=== PATIENT | female | born 1965 | race Caucasian/White ===

== ENCOUNTER 2017-03-23 10:25 | Inpatient (IN) | payer BC ==
[~2017-03-23] VITALS: Ht 152.4 cm; Wt 43.3 kg
[2017-03-23] VITALS (9 sets, daily range): BP systolic 103–121; BP diastolic 69–79
[~2017-03-23 10:25] MED LIST: ALBU8.5H8 INH; CARI250T PO; CLON1TAB3 PO; HYDR-2758 PO; TAMO10TA PO; TIOT18CA IH
[2017-03-23] MEDS ORDERED: IV RINGERS SOLUTION,LACTATED 1,000 ML IV SCH (11:15)
[2017-03-23 11:18] LABS: BASO # 0.1 x10^3/uL (0.0-0.2); BASO % 1 % (0-3); EOS % 0 % (0-3); HEMATOCRIT 34.3 % (36.0-47.0); HEMOGLOBIN 11.8 g/dL (12.0-15.5); LYMPH # 0.8 x10^3/uL (1.0-4.8); LYMPH % 14 % (24-48); MEAN CORPUSCULAR HEMOGLOBIN 32 pg (25-35); MEAN CORPUSCULAR HGB CONC 34 g/dL (31-37); MEAN CORPUSCULAR VOLUME 92 fL (79-100); MONO # 0.4 x10^3/uL (0.0-1.1); MONO % 8 % (0-9); NEUT # 4.4 x10^3uL (1.8-7.7); NEUT % 77 % (31-73); PLATELET COUNT 219 x10^3/uL (140-400); RED BLOOD COUNT 3.73 x10^6/uL (3.50-5.40); RED CELL DISTRIBUTION WIDTH 13.9 % (11.5-14.5); WHITE BLOOD COUNT 5.7 x10^3/uL (4.0-11.0)
[2017-03-23 11:29] LABS: PREG TEST PT QUAL NEGATIVE (NEG)
[2017-03-23 11:37] LABS: ACETAMIN < 2 mcg/mL (10-30); CALCIUM 8.3 mg/dL (8.5-10.1); CREATININE 0.8 mg/dL (0.6-1.0); DIRECT BILIRUBIN 0.1 mg/dL (0.0-0.2); ETHANOL < 10 mg/dL (0-10); GFR 75.6; MAGNESIUM 2.3 mg/dL (1.8-2.4); POTASSIUM 3.6 mmol/L (3.5-5.1); SALIC 1.9 mg/dL (2.8-20.0); TOTAL BILIRUBIN 0.3 mg/dL (0.2-1.0); TOTAL PROTEIN 5.8 g/dL (6.4-8.2)
[2017-03-23 11:53] LABS: BARBITURATES NEG (NEG); BENZODIAZEPINES POS (NEG); CANNABINOIDS NEG (NEG); COCAINE NEG (NEG); METHADONE NEG (NEG); OPIATES NEG (NEG); PHENCYCLIDINE NEG (NEG)
[2017-03-23 11:54] LABS: AMPHETAMINE/METHAMPHETAMINE POS (NEG)
[2017-03-23 12:03] LABS: BACTERIA,URINE 0 /HPF (0-FEW); BILIRUBIN,URINE NEG (NEG); CLARITY,URINE CLEAR; COLOR,URINE YELLOW; GLUCOSE,URINE NEG (NEG); NITRITE,URINE NEG (NEG); RBC,URINE 0 /HPF (0-2); SQUAMOUS EPITHELIAL CELL,UR OCC /LPF; UROBILINOGEN,URINE 1 mg/dL (0.2 mg/dL)
[2017-03-23] MEDS ORDERED: IPRATRPIUM/ALBUTEROL 0.5/2.5MG 3 ML NEBU. ONE (12:06)
[2017-03-23] MEDS: IV NORMAL SALINE 1,000ML 1,000 ML IV SCH ×3 (12:30→20:17)
[2017-03-23] MEDS: IPRATRPIUM/ALBUTEROL 0.5/2.5MG 3 ML NEBU. NEB SCH ×3 (12:45→20:00)
[2017-03-23] MEDS ORDERED: ONDANSETRON PF 4 MG/2 ML VIAL. IV PRN (12:45)
--- NOTE | 2017-03-23 12:54 | PHYS DOC ---
General Chief Complaint: ALTERED MENTAL STATUS Stated Complaint: DRUGS Time Seen by MD: 11:05 Source: patient, family Exam Limitations: intoxication Problems: History of Present Illness Initial Comments Patient is a 51-year-old female brought to the ED by her [id number]-dv-jky with a report of possible overmedication. Drbudol-nr-igv states that the patient is being evicted and had advised him that she hadn't slept for 3 days. The patient's daughter called him and said her mom wanted to get clean and so he brought her in for evaluation. Patient has a long history of methamphetamine and "pill" abuse. On arrival the patient lethargic and arousable when having IV placed she did advise the RN that she took meth this morning and didn't like the way it felt so then she took an unknown quantity of Xanax. She also advised the RN that she wanted to end her life she did not however have a plan. On my evaluation the patient is arousable but uncooperative with answering questions. She shakes her head no when asked if she was having pain, chest pain, or trouble breathing. ED vitals: 97.8, 93, 14, 96/62, 98% on room air Timing/Duration: unsure (this morning) Severity: moderate Modifying Factors: worse with medication Associated Symptoms: other Allergies: Coded Allergies: No Known Drug Allergies (Unverified , 08/14/15) Past Medical History Medical History: other (breast cancer, COPD, chronic pain, polysubstance abuse) Surgical History: other (tubal ligation, bilateral mastectomy) Social History Smoker: cigarettes Alcohol: occasionally Drugs: marijuana, other (methamphetamine, prescription medications) Review of Systems All Other Systems: Reviewed and Negative (per history of present illness, accurate review of systems is unobtainable.) Physical Exam General Appearance: no apparent distress (thin, sedated/lethargic) Eyes: bilateral eye PERRL, bilateral eye EOMI Ear, Nose, Throat: hearing grossly normal, normal ENT inspection, normal pharynx Neck: non-tender, supple Respiratory: normal breath sounds, no respiratory distress Cardiovascular: normal peripheral pulses, regular rate, rhythm Gastrointestinal: normal bowel sounds, non tender, soft Back: no CVA tenderness, no vertebral tenderness Extremities: normal range of motion, non-tender, no pedal edema Neurologic/Psychiatric: cutter head sharpener II-XII nml as tested, no motor/sensory deficits ( sedated lethargic, positive suicidal ideation) Orders, Labs, Meds EKG: Normal sinus rhythm 86 bpm no STEMI. Interpreted by Dr. Hernández. Pertinent labs: BUNs 25, creatinine 0.8, AST 44, creatine kinase 827, urine drug screen positive for benzodiazepines and methamphetamine Patient has remained stable throughout the ED course, she has been protecting her airway and is starting to wake up. Current blood pressure 117/77. 1246: I discussed the patient with Dr. Harden who accepts her for inpatient one-to -one ICU admission. We'll administer IV fluids and monitor creatine kinase, await for her mental status to clear so she can be evaluated by Dr. Holloway for suicidal ideation. Impressions: Benzodiazepine overdose Methamphetamine addiction Suicidal ideation Elevated CK potentially trending toward rhabdomyolysis Hypovolemia Departure Time of Disposition: 12:53 Disposition: 09 ADMITTED INPATIENT Condition: GENIED WILLIAN HERNÁNDEZ DO Mar 23, 2017 12:54
--- NOTE | 2017-03-23 13:56 | EKG ---
[address] [address] Test Date: 2017-03-23 Test Time: 11:20:21 Pat Name: EBONY KING Department: Room: [facility] [place] 1 Gender: F Endoscopy Nurse: MYRIAM : 1965 Requested By: WILLIAN RIVAS Order Number: [id number] Reading MD: Naman Lewis MD Measurements Intervals [place] Rate: 86 P: 74 DE: 132 QRS: 81 QRSD: 86 T: 66 QT: 370 QTc: 446 Interpretive Statements SINUS RHYTHM Electronically Signed On 03-26-2017 10:52:57 [employer] OPERATOR by Naman Lewis MD
[2017-03-23] MEDS ORDERED: IV NORMAL SALINE 1,000ML 1,000 ML IV ONE (14:00)
--- NOTE | 2017-03-23 19:01 | PDOC ---
Exam Note: Guillermo Note: Please also refer to the separate dictated note~for this date of service dictated separately.~Patient seen individually. Discussed the patient with Nursing staff reviewed the chart.~Reviewed interim history and current functioning. Reviewed vital signs,~Labs/ Radiology~and current medications noted below. Continue current treatment with the changes noted in the dictated addendum note Assessment: Vital Signs: Vital Signs Date Time Temp Pulse Resp B/P (MAP) Pulse Ox O2 Delivery O2 Flow Rate FiO2 03/23/17 16:32 Room Air 03/23/17 16:29 81 22 118/79 (92) 93 03/23/17 14:15 98.0 I&O Intake and Output 03/24/17 07:00 Intake Total 2668 ml Balance 2668 ml Intake Oral 360 ml IV Total 2308 ml # Voids 1 Labs: Laboratory Tests Test 03/23/17 11:06 03/23/17 11:30 03/23/17 17:36 White Blood Count 5.7 x10^3/uL (4.0-11.0) Red Blood Count 3.73 x10^6/uL (3.50-5.40) Hemoglobin 11.8 g/dL (12.0-15.5) L Hematocrit 34.3 % (36.0-47.0) L Mean Corpuscular Volume 92 fL (79-100) Mean Corpuscular Hemoglobin 32 pg (25-35) Mean Corpuscular Hemoglobin Concent 34 g/dL (31-37) Red Cell Distribution Width 13.9 % (11.5-14.5) Platelet Count 219 x10^3/uL (140-400) Neutrophils (%) (Auto) 77 % (31-73) H Lymphocytes (%) (Auto) 14 % (24-48) L Monocytes (%) (Auto) 8 % (0-9) Eosinophils (%) (Auto) 0 % (0-3) Basophils (%) (Auto) 1 % (0-3) Neutrophils # (Auto) 4.4 x10^3uL (1.8-7.7) Lymphocytes # (Auto) 0.8 x10^3/uL (1.0-4.8) L Monocytes # (Auto) 0.4 x10^3/uL (0.0-1.1) Eosinophils # (Auto) 0.0 x10^3/uL (0.0-0.7) Basophils # (Auto) 0.1 x10^3/uL (0.0-0.2) Sodium Level 140 mmol/L (136-145) Potassium Level 3.6 mmol/L (3.5-5.1) Chloride Level 107 mmol/L (98-107) Carbon Dioxide Level 26 mmol/L (21-32) Anion Gap 7 (6-14) Blood Urea Nitrogen 25 mg/dL (7-20) H Creatinine 0.8 mg/dL (0.6-1.0) Estimated GFR (Cockcroft-Gault) 75.6 Glucose Level 117 mg/dL (70-99) H Calcium Level 8.3 mg/dL (8.5-10.1) L Magnesium Level 2.3 mg/dL (1.8-2.4) Total Bilirubin 0.3 mg/dL (0.2-1.0) Direct Bilirubin 0.1 mg/dL (0.0-0.2) Aspartate Amino Transferase (AST) 44 U/L (15-37) H Alanine Aminotransferase (ALT) 36 U/L (14-59) Alkaline Phosphatase 46 U/L (46-116) Creatine Kinase 827 U/L (26-192) H Troponin I Quantitative < 0.017 ng/mL (0-0.055) 0.022 ng/mL (0-0.055) Total Protein 5.8 g/dL (6.4-8.2) L Albumin 3.0 g/dL (3.4-5.0) L Serum Test, Qualitative Negative (NEG) Salicylates Level 1.9 mg/dL (2.8-20.0) L Salicylate Last Dose Date Unk Salicylate Last Dose Time Unk Acetaminophen Level < 2 mcg/mL (10-30) L Acetaminophen Last Dose Date Unk Acetaminophen Last Dose Time Unk Ethyl Alcohol Level < 10 mg/dL (0-10) Urine Collection Type U cath Urine Color Yellow Urine Clarity Clear Urine pH 6.0 Urine Specific [place] 1.025 Urine Protein Neg (NEG-TRACE) Urine Glucose (UA) Neg mg/dL (NEG) Urine Ketones (Stick) Neg mg/dL (NEG) Urine Blood Neg (NEG) Urine Nitrite Neg (NEG) Urine Bilirubin Neg (NEG) Urine Urobilinogen Dipstick 1 mg/dL (0.2 mg/dL) Urine Leukocyte Esterase Neg (NEG) Urine RBC 0 /HPF (0-2) Urine WBC 1-4 /HPF (0-4) Urine Squamous Epithelial Cells Occ /LPF Urine Bacteria 0 /HPF (0-FEW) Urine Mucus Slight /LPF Urine Opiates Screen Neg (NEG) Urine Methadone Screen Neg (NEG) Urine Barbiturates Neg (NEG) Urine Phencyclidine Screen Neg (NEG) Urine Amphetamine/Methamphetamine Pos (NEG) Urine Benzodiazepines Screen Pos (NEG) Urine Cocaine Screen Neg (NEG) Urine Cannabinoids Screen Neg (NEG) Urine Ethyl Alcohol Neg (NEG) Current Medications: Meds: Current Medications Lactated Ringer's 1,000 ml @ 1,000 mls/hr Q1H IV Last administered on 11:15; Start 03/23/17 at 11:15; Stop 03/23/17 at 11:25; Status DC Albuterol/ Ipratropium (Duoneb) 3 ml STK-MED ONCE .ROUTE ; Start 03/23/17 at 12 :06; Stop 03/23/17 at 12:07; Status DC Ondansetron HCl (Zofran) 4 mg PRN Q4HRS PRN IV NAUSEA/VOMITING; Start at 12:45; Stop 03/24/17 at 12:44 Sodium Chloride 1,000 ml @ 125 mls/hr Q8H IV Last administered on 03/23/17 13:45; Start 03/23/17 at 12:36; Stop 03/24/17 at 12:35 Albuterol/ Ipratropium (Duoneb) 3 ml RTQID NEB ; Start 03/23/17 at 12:45; Stop 03/24/17 at 12:44 Sodium Chloride 1,000 ml @ 1,000 mls/hr 1X ONCE IV Last administered on 03/23 12:15; Start 03/23/17 at 14:00; Stop 03/23/17 at 14:59; Status DC Famotidine (Pepcid) 20 mg BID IVP ; Start 03/23/17 at 21:00 Influenza Virus Vaccine Quadrival (Fluarix Quad [id number] Syringe) 0.5 ml ONCE ONCE VAX IM ; Start 03/24/17 at 09:00; Stop 03/24/17 at 09:01 Pneumococcal Polyvalent Vaccine (Pneumovax 23) 0.5 ml ONCE ONCE VAX IM ; Start 03/24/17 at 09:00; Stop 03/24/17 at 09:01 Nicotine (Nicoderm Cq 21mg) 1 patch DAILY TD ; Start 03/23/17 at 18:15 Active Scripts Active Reported No Known Medications Prior To Admisstion (Info) Each 1 Each MC I have reviewed the current psychotropics carefully including drug interactions. Risk benefit ratio favors no change other than as noted in my dictated progress note. Diagnosis: Problems: (1) Anxiety disorder (2) Major depressive disorder, recurrent episode (3) Methamphetamine abuse (4) Cannabis abuse (5) Suicidal thoughts RAUL YODER MD Mar 23, 2017 19:01
[2017-03-23] MEDS: NICOTINE 21MG PATCH. TD SCH (20:17)
[2017-03-23] MEDS: FAMOTIDINE 20 MG/2 ML VIAL IVP SCH (20:17)
--- NOTE | 2017-03-23 20:54 | HP ---
ADMIT DATE: 03/23/2017 HISTORY OF PRESENT ILLNESS: The patient is a 51-year-old female patient who was brought to the Emergency Room with her [id number]-[id number] with a report of possible overmedication. Icytgoz-tj-fuq states that patient is being evicted and has advised him that she had not slept for 3 days and the patient's daughter called him and said her mom wanted to get clean, so he brought her in for evaluation. The patient has a long history of methamphetamine and bill abuse. By the time she arrived, she apparently was lethargic, but arousable. When the nursing staff attempting to place an IV line, she advised the nursing staff that she took meth this morning, I did not like the way it felt, so that then she took an unknown quantity of Xanax. She also informed the nursing staff that she wanted to end her life; however, she does not have plan for that. She was apparently uncooperative in answering questions. She was evaluated in the Emergency Room and her toxic screen was positive for amphetamine, methamphetamine as well as benzodiazepine and was admitted to the ICU for suicidal ideation with one-on-one observation. When I questioned her in the ICU, she was again very sleepy but arousable, she is so lethargic and sleepy, but she opens her eyes and drifts back to sleep. She was not willing to give answers as to where she gets or who gives her the amphetamine or how she got the Xanax and eventually said that she buy it from the street and she took 3 full bottles of Xanax, which if my assessment is right that she took about 6 mg of Xanax. PAST MEDICAL HISTORY: Significant for breast cancer, COPD, remote history of seizures, generalized osteoarthritis, and scoliosis. PAST SURGICAL HISTORY: Significant for bilateral mastectomy and surgical removal of infected right breast implant. ALLERGIES: She has no known drug allergies. MEDICATIONS: She is currently on albuterol sulfate 2 puffs as needed every 4 hours for shortness of breath. She is on Soma 250 mg at bedtime, clonazepam 1 mg as needed for anxiety, she is on hydrocodone/APAP 5/325 one to two tablets every 6 hours, tamoxifen citrate 10 mg daily and Spiriva HandiHaler 1 inhalation once a day. FAMILY HISTORY: Unobtainable. The patient was extremely lethargic and was uncooperative. SOCIAL HISTORY: She is apparently from her for the last 2 weeks as he moved out. Apparently according to her , her abusive methamphetamine has escalated and has increased dramatically and over the last 2 weeks, he decided that he can no longer live with her and actually moved out. REVIEW OF SYSTEMS: As per accurate review of systems is difficult to obtain because the patient is extremely sedated. PHYSICAL EXAMINATION: GENERAL: When I examined her, she was pale, extremely cachectic, but no jaundice, cyanosis, or thyromegaly. No jugular venous distension. No lower limb edema. VITAL SIGNS: Her heart rate was 93, blood pressure was 103/70, temperature was 97.8, respiratory rate was 14 and oxygen saturation was 97% on room air. HEAD: Showed normocephalic, atraumatic. NECK: Supple. HEART: Showed normal first and second heart sounds with no gallop, rub or murmur. CHEST: Clear to auscultation. No crepitation or rhonchi. She has a breast implant in the left side only. ABDOMEN: Scaphoid, soft, nontender. NEUROLOGIC: She was extremely lethargic, but arousable. All her cranial nerves intact. EXTREMITIES: She moves extremities without difficulty. LABORATORY DATA: On admission showed that her white cell count was 5700, hemoglobin 11.8, hematocrit 34.3, MCV 92, and platelet count of 219,000. Her chemistry showed a serum sodium of 140, potassium 3.6, chloride 107, bicarbonate 26, anion gap of 7, BUN 25, creatinine was 0.8, estimated GFR was 75 mL per minute. Her glucose 117. Calcium was 8.3, magnesium 2.3. Total bilirubin, AST, ALT, alkaline phosphatase were normal. Her CK was 827. Total protein was 5.8, albumin 3. Serum was negative. Urinalysis was unremarkable. Toxic screen was positive for amphetamine, methamphetamine as well as benzodiazepine. ASSESSMENT: In summary, this is a 51-year-old female patient who has been abusing methamphetamine and her abuse has been escalating according to her after she was diagnosed with breast cancer and has worsened recently and that he actually decided to move out. Apparently, her daughter was supposed to take her today to detoxification center and somehow the patient was found by her [id number]-ppn lethargic and unresponsive. The patient herself was unable to tell us exactly who gave her the amphetamine, methamphetamine, and she stated that she buys Xanax on the street. The patient was admitted to the ICU for benzodiazepine overdose, methamphetamine addiction, suicidal ideation and also mild rhabdomyolysis as well as hypovolemia. PLAN: To continue with IV fluid in the form of normal saline. She obviously needs one-on-one sitter. We will consult Dr. Holloway for evaluation and treatment and eventually we will have to get the [facility] for inpatient treatment if that deemed by the psychiatrist to be necessary. ISADORA FAROOQ MD DR: JACK/za JOB#: [id number] / [id number]
[2017-03-24] VITALS (11 sets, daily range): BP systolic 103–137; BP diastolic 71–93
[2017-03-24] MEDS: IV NORMAL SALINE 1,000ML 1,000 ML IV SCH ×2 (03:56→10:34)
[2017-03-24] MEDS: IPRATRPIUM/ALBUTEROL 0.5/2.5MG 3 ML NEBU. NEB SCH ×2 (08:00→12:00)
[2017-03-24] MEDS ORDERED: PNEUMOC CONJ VACC 23-VALENT 0.5 ML VIAL. VAX IM ONE (09:00)
[2017-03-24] MEDS ORDERED: FLU VACC QS2017-18 (36MOS+)/PF 0.5 ML SYRINGE. VAX IM ONE (09:00)
[2017-03-24] MEDS: FAMOTIDINE 20 MG/2 ML VIAL IVP SCH ×2 (09:00→21:00)
[2017-03-24] MEDS: NICOTINE 21MG PATCH. TD SCH ×2 (09:24→22:21)
[2017-03-24 09:37] LABS: BASO # 0.1 x10^3/uL (0.0-0.2); BASO % 1 % (0-3); EOS % 1 % (0-3); HEMATOCRIT 37.4 % (36.0-47.0); HEMOGLOBIN 12.7 g/dL (12.0-15.5); LYMPH # 0.8 x10^3/uL (1.0-4.8); LYMPH % 18 % (24-48); MEAN CORPUSCULAR HEMOGLOBIN 32 pg (25-35); MEAN CORPUSCULAR HGB CONC 34 g/dL (31-37); MEAN CORPUSCULAR VOLUME 92 fL (79-100); MONO # 0.4 x10^3/uL (0.0-1.1); MONO % 8 % (0-9); NEUT # 3.5 x10^3uL (1.8-7.7); NEUT % 73 % (31-73); PLATELET COUNT 226 x10^3/uL (140-400); RED BLOOD COUNT 4.05 x10^6/uL (3.50-5.40); RED CELL DISTRIBUTION WIDTH 13.9 % (11.5-14.5); WHITE BLOOD COUNT 4.8 x10^3/uL (4.0-11.0)
[2017-03-24 09:50] LABS: ALBUMIN 2.7 g/dL (3.4-5.0); CREATININE 0.7 mg/dL (0.6-1.0); GFR 88.2; POTASSIUM 3.8 mmol/L (3.5-5.1); TOTAL BILIRUBIN 0.1 mg/dL (0.2-1.0); TOTAL PROTEIN 5.5 g/dL (6.4-8.2)
--- NOTE | 2017-03-24 19:49 | PDOC ---
Exam Note: Guillermo Note: Please also refer to the separate dictated note~for this date of service dictated separately.~Patient seen individually. Discussed the patient with Nursing staff reviewed the chart.~Reviewed interim history and current functioning. Reviewed vital signs,~Labs/ Radiology~and current medications noted below. Continue current treatment with the changes noted in the dictated addendum note Assessment: Vital Signs: Vital Signs Date Time Temp Pulse Resp B/P (MAP) Pulse Ox O2 Delivery O2 Flow Rate FiO2 03/24/17 13:34 91 20 137/78 (97) Room Air 03/24/17 12:33 96 03/24/17 07:00 97.1 I&O Intake and Output 03/25/17 07:00 Intake Total 840 ml Balance 840 ml Intake Oral 840 ml # Voids 3 # Bowel Movements 1 Labs: Laboratory Tests Test 03/23/17 23:35 03/24/17 09:15 Troponin I Quantitative < 0.017 ng/mL (0-0.055) White Blood Count 4.8 x10^3/uL (4.0-11.0) Red Blood Count 4.05 x10^6/uL (3.50-5.40) Hemoglobin 12.7 g/dL (12.0-15.5) Hematocrit 37.4 % (36.0-47.0) Mean Corpuscular Volume 92 fL (79-100) Mean Corpuscular Hemoglobin 32 pg (25-35) Mean Corpuscular Hemoglobin Concent 34 g/dL (31-37) Red Cell Distribution Width 13.9 % (11.5-14.5) Platelet Count 226 x10^3/uL (140-400) Neutrophils (%) (Auto) 73 % (31-73) Lymphocytes (%) (Auto) 18 % (24-48) L Monocytes (%) (Auto) 8 % (0-9) Eosinophils (%) (Auto) 1 % (0-3) Basophils (%) (Auto) 1 % (0-3) Neutrophils # (Auto) 3.5 x10^3uL (1.8-7.7) Lymphocytes # (Auto) 0.8 x10^3/uL (1.0-4.8) L Monocytes # (Auto) 0.4 x10^3/uL (0.0-1.1) Eosinophils # (Auto) 0.0 x10^3/uL (0.0-0.7) Basophils # (Auto) 0.1 x10^3/uL (0.0-0.2) Sodium Level 142 mmol/L (136-145) Potassium Level 3.8 mmol/L (3.5-5.1) Chloride Level 109 mmol/L (98-107) H Carbon Dioxide Level 26 mmol/L (21-32) Anion Gap 7 (6-14) Blood Urea Nitrogen 12 mg/dL (7-20) # Creatinine 0.7 mg/dL (0.6-1.0) Estimated GFR (Cockcroft-Gault) 88.2 BUN/Creatinine Ratio 17 (6-20) Glucose Level 67 mg/dL (70-99) L Calcium Level 8.0 mg/dL (8.5-10.1) L Total Bilirubin 0.1 mg/dL (0.2-1.0) #L Aspartate Amino Transferase (AST) 30 U/L (15-37) Alanine Aminotransferase (ALT) 29 U/L (14-59) Alkaline Phosphatase 51 U/L (46-116) Creatine Kinase 322 U/L (26-192) H Total Protein 5.5 g/dL (6.4-8.2) L Albumin 2.7 g/dL (3.4-5.0) L Albumin/Globulin Ratio 1.0 (1.0-1.7) Current Medications: Meds: Current Medications Lactated Ringer's 1,000 ml @ 1,000 mls/hr Q1H IV Last administered on 11:15; Start 03/23/17 at 11:15; Stop 03/23/17 at 11:25; Status DC Albuterol/ Ipratropium (Duoneb) 3 ml STK-MED ONCE .ROUTE ; Start 03/23/17 at 12 :06; Stop 03/23/17 at 12:07; Status DC Ondansetron HCl (Zofran) 4 mg PRN Q4HRS PRN IV NAUSEA/VOMITING; Start at 12:45; Stop 03/24/17 at 12:44; Status DC Sodium Chloride 1,000 ml @ 125 mls/hr Q8H IV Last administered on 03/24/17 03:56; Start 03/23/17 at 12:36; Stop 03/24/17 at 12:35; Status DC Albuterol/ Ipratropium (Duoneb) 3 ml RTQID NEB ; Start 03/23/17 at 12:45; Stop 03/24/17 at 12:44; Status DC Sodium Chloride 1,000 ml @ 1,000 mls/hr 1X ONCE IV Last administered on 03/23 12:15; Start 03/23/17 at 14:00; Stop 03/23/17 at 14:59; Status DC Famotidine (Pepcid) 20 mg BID IVP Last administered on 03/23/17 20:17; Start 03/23/17 at 21:00 Influenza Virus Vaccine Quadrival (Fluarix Quad [id number] Syringe) 0.5 ml ONCE ONCE VAX IM Last administered on 03/24/17 09:28; Start 03/24/17 at 09:00; Stop 03/24/17 at 09:01; Status DC Pneumococcal Polyvalent Vaccine (Pneumovax 23) 0.5 ml ONCE ONCE VAX IM Last administered on 03/24/17 09:27; Start 03/24/17 at 09:00; Stop 03/24/17 at 09 :01; Status DC Nicotine (Nicoderm Cq 21mg) 1 patch DAILY TD Last administered on 03/24/17 09 :24; Start 03/23/17 at 18:15 Active Scripts Active Reported No Known Medications Prior To Admisstion (Info) Each 1 Each MC I have reviewed the current psychotropics carefully including drug interactions. Risk benefit ratio favors no change other than as noted in my dictated progress note. Diagnosis: Problems: (1) Suicidal thoughts (2) Anxiety disorder (3) Major depressive disorder, recurrent episode (4) Methamphetamine abuse (5) Cannabis abuse RAUL YODER MD Mar 24, 2017 19:49
--- NOTE | 2017-03-25 06:26 | CONS ---
DATE OF CONSULTATION: 03/23/2017 PSYCHIATRIC CONSULTATION This late entry, date of service 03/23/2017, covers elements not covered in my initial note of 03/23/2017. I met with the patient the evening of 03/23/2017. Discussed with nursing staff and current past records. IDENTIFYING DATA: The patient is a 51-year-old female seen in ICU bed 2, [facility], for a psychiatric consult requested by Dr. Harden on account of the patient's polysubstance abuse including methamphetamines and an overdose of Xanax and then ongoing history of cannabis abuse. CHIEF COMPLAINT: "No, I was never suicidal. I should not have used meth. I took Xanax to calm down. I was not wanting to hurt myself." HISTORY OF PRESENT ILLNESS: Reportedly, the patient had some marital problems and other psychosocial stressors including employment issues. She has been abusing methamphetamines and was brought to the Emergency Room with her ufjvzyf-xo-tde with possible over medication. Reportedly, the patient is being evicted from her home and had not slept for about 3 days. The patient's daughter called him and said her mother wanted to get clean, so he brought her into [facility]. She informed the nursing staff in the ER, she took methamphetamine, did not like the way she felt and then took Xanax to get better from it. She also voiced suicidal ideation to the nursing staff, but since then has denied it and has no plan. Apparently, she took about 6 mg of Xanax. PAST PSYCHIATRIC HISTORY: She has been seen at the [facility], details are unclear and she was not able to remember who she saw and for how long and when. PAST MEDICAL HISTORY: Positive for breast cancer, COPD, remote history of seizure, generalized osteoarthritis, scoliosis. PAST SURGICAL HISTORY: Bilateral mastectomy, surgical removal of infected right breast implant. She has been on Tamoxifen, but is not taking it recently because she has no primary care physician consequent to no insurance and unable to afford the medication. DRUG ALLERGIES: Negative. FAMILY HISTORY: Noncontributory. SOCIAL HISTORY: The patient is from her , but since being in the ICU, the has come to visit her. She is unemployed. MENTAL STATUS EXAMINATION: The patient is seen individually. She is oriented to herself and situation, somewhat irritable, anxious. Denies active suicidal or homicidal ideation. Mood somewhat dysphoric. Affect, mood congruent. Attention span short. Language function intact. Intellect average. Refusing to answer questions about where she got the methamphetamine and Xanax. No active suicidal or homicidal ideation. IMPRESSION: Polysubstance abuse, depressive disorder, unspecified, over medication with Xanax and methamphetamine. PLAN: No active change from a psychiatric standpoint. The patient is on one-on-one status. She denies active suicidal ideation and after adequate period of observation, this could be discontinued. She should [facility] once she is medically stable with consideration for drug rehabilitation or inpatient psychiatric placement or outpatient treatment including day program at the [facility]. We will have to defer this to the [facility] screeners for determination at the time she is medically stable. Dr. Harden, thank you for the opportunity to participate in your patient's care. MAN Cathy YODER MD DR: DIONNE/za JOB#: [id number] / [id number]
--- NOTE | 2017-03-25 11:06 | PN ---
DATE: 03/24/2017 SUBJECTIVE: The patient is a 51-year-old female patient who was admitted with altered mental status. She was apparently unresponsive. She took a total of 6 mg of Xanax; after taking the methamphetamine, she was admitted to the hospital. Her initial investigation showed that her QT interval was normal. Her electrolytes were normal. Her CK was slightly elevated and was started on IV fluid. She was sleeping all night and early this morning by the time I saw her in the afternoon, she was awake, alert. On questioning her, she stated on multiple occasions that she has no intention to harm herself; however, her stated that she has been escalating her methamphetamine abuse to the extent that he actually moved out about 2 weeks ago. PHYSICAL EXAMINATION: GENERAL: When I saw her this afternoon, she was definitely awake, alert, responding appropriately. On examining her, she was slightly pale, but not jaundiced, cyanosis, or thyromegaly. No jugular venous distention. No limb edema. VITAL SIGNS: Her heart rate was 91, blood pressure 137/78, temperature was 97, respiratory rate was 20, and oxygen saturation was 96%. HEAD, EYES, EARS, NOSE AND THROAT: Showed normocephalic, atraumatic. NECK: Supple. HEART: Showed normal first and second heart sounds with no gallop, rub or murmur. CHEST: Clear to auscultation. No crepitation or rhonchi. ABDOMEN: Distended, soft, and nontender. NEUROLOGIC: She was awake, alert, responding appropriately. Cranial nerves intact. She moves extremities without difficulty. She ambulates without assistance or assistive devices. Her intake was 3300, no output was reported. LABORATORY DATA: This morning showed a serum sodium 142, potassium 3.8, chloride 109, bicarbonate 26, anion gap of 7, BUN 12, creatinine 0.7. Her estimated GFR was 88 mL per minute. Her glucose was 67, calcium was 8. Total bilirubin, AST, ALT, alkaline phosphatase were normal. Total protein of 5.5, albumin 2.7. Her CK was only 322 down from 827. Her white cell count was 4,800, hemoglobin 12.7, hematocrit 37, MCV 92, and platelet count 227,000. Her EKG showed that her corrected QT interval is 450 milliseconds. ASSESSMENT: In summary, this is a 51-year-old female patient who was brought yesterday with methamphetamine abuse and overdose of Xanax. The patient is now alert, oriented to time, place, and person. Her Dairy coma focal is 15. PLAN: She is medically stable. We are waiting for the consult to evaluate her to decide whether she needs to have inpatient treatment. ISADORA FAROOQ MD DR: JACK/za JOB#: [id number] / [id number]
[2017-03-25] MEDS ORDERED: NITR100C62 PO (19:11)
== END 2017-03-24 20:25 | disposition home or self-care (01) | DRG 918 ==
LOC: ER 10:25 → ICU 13:04 → 1 SOUTH 03-24 17:13
PROVIDERS: ADMIT Internal Medicine; ATTEND Internal Medicine
DX: T42.4X2A Poisoning by benzodiazepines, intentional self-harm, initial encounter (principal); M62.82 Rhabdomyolysis; F15.20 Other stimulant dependence, uncomplicated; F33.9 Major depressive disorder, recurrent, unspecified; M41.9 Scoliosis, unspecified; E86.1 Hypovolemia; F12.10 Cannabis abuse, uncomplicated; F41.9 Anxiety disorder, unspecified; J44.9 Chronic obstructive pulmonary disease, unspecified; M15.9 Polyosteoarthritis, unspecified; Z63.0 Problems in relationship with spouse or partner; Z85.3 Personal history of malignant neoplasm of breast; Z90.13 Acquired absence of bilateral breasts and nipples; F19.10 Other psychoactive substance abuse, uncomplicated; G89.29 Other chronic pain; Z98.51 Tubal ligation status; F17.210 Nicotine dependence, cigarettes, uncomplicated
CPT/HCPCS: 36415; 51701; 80048; 80053; 80076; 80307; 81001; 82550; 83735; 84484; 84703; 85025; 87641; 90686; 90732; 93005; 94640; 96360; G0480; J7120; S0028; 99285-25; G0479; J7030

== ENCOUNTER 2017-03-25 17:00 | Emergency (ER) | payer SELFPAY ==
[~2017-03-25] VITALS: Ht 152.4 cm; Wt 43.1 kg
[2017-03-25 17:05] VITALS: BP 137/78
[2017-03-25 18:17] LABS: BASO % 1 % (0-3); CALCIUM 8.9 mg/dL (8.5-10.1); CREATININE 0.7 mg/dL (0.6-1.0); EOS % 0 % (0-3); GFR 88.2; HEMATOCRIT 40.3 % (36.0-47.0); HEMOGLOBIN 13.8 g/dL (12.0-15.5); LYMPH # 0.8 x10^3/uL (1.0-4.8); LYMPH % 13 % (24-48); MEAN CORPUSCULAR HEMOGLOBIN 31 pg (25-35); MEAN CORPUSCULAR HGB CONC 34 g/dL (31-37); MEAN CORPUSCULAR VOLUME 91 fL (79-100); MONO # 0.5 x10^3/uL (0.0-1.1); MONO % 7 % (0-9); NEUT # 4.8 x10^3uL (1.8-7.7); NEUT % 78 % (31-73); PLATELET COUNT 263 x10^3/uL (140-400); POTASSIUM 3.4 mmol/L (3.5-5.1); RED BLOOD COUNT 4.41 x10^6/uL (3.50-5.40); WHITE BLOOD COUNT 6.1 x10^3/uL (4.0-11.0)
[2017-03-25 18:30] LABS: BARBITURATES NEG (NEG); BENZODIAZEPINES POS (NEG); CANNABINOIDS NEG (NEG); COCAINE NEG (NEG); METHADONE NEG (NEG); OPIATES NEG (NEG); PHENCYCLIDINE NEG (NEG)
[2017-03-25 18:36] LABS: BACTERIA,URINE FEW /HPF (0-FEW); BILIRUBIN,URINE NEG (NEG); CLARITY,URINE CLOUDY; COLOR,URINE YELLOW; GLUCOSE,URINE NEG (NEG); NITRITE,URINE NEG (NEG); RBC,URINE OCC /HPF (0-2); SQUAMOUS EPITHELIAL CELL,UR OCC /LPF; UROBILINOGEN,URINE 0.2 mg/dL (0.2 mg/dL)
[2017-03-25 18:39] LABS: AMPHETAMINE/METHAMPHETAMINE POS (NEG)
--- NOTE | 2017-03-25 18:49 | PHYS DOC ---
Past History Past Medical History: Cancer, COPD, Other Past Surgical History: Cancer Surgery, Tubal ligation, Other Alcohol Use: Occasionally Drug Use: Methamphetamine, Other Adult General Chief Complaint Chief Complaint: PSYCH EVALUATION HPI HPI Patient is a 51 year old female who presents with complaint of anxiety. The patient states that she has history of chronic Xanax abuse but also states that she recently took methamphetamine. Patient was admitted to the hospital for concern over drug overdose 2 days ago. The patient was medically treated and cleared. Patient also received psychiatric evaluation while in the hospital yesterday and was deemed clear for outpatient services. Patient was discharged home, however the patient comes back today she is having worsening anxiety. Patient states that she feels terrible at this time due to her drug use and she is seeking help with detox. Patient is accompanied by her who helps provide history. The patient denies any other somatic complaints at this time. The patient states that she would go to an inpatient detox center voluntarily at this time. Review of Systems Review of Systems Constitutional: Anxiety, shaky, denies fever or chills[] Eyes: Denies change in visual acuity, redness, or eye pain [] HENT: Denies nasal congestion or sore throat [] Respiratory: Denies cough or shortness of breath [] Cardiovascular: Denies chest pain or edema[] GI: Denies abdominal pain, nausea, vomiting, bloody stools or diarrhea [] : Denies dysuria or hematuria [] Musculoskeletal: Denies back pain or joint pain [] Integument: Denies rash or skin lesions [] Neurologic: Denies headache, focal weakness or sensory changes [] All other systems were reviewed and found to be within normal limits, except as documented in this note. Allergies Allergies Allergies Coded Allergies Type Severity Reaction Last Updated Verified No Known Drug Allergies 08/14/15 No Physical Exam Physical Exam Constitutional: Alert, afebrile, appears anxious. [] HENT: Normocephalic, atraumatic, bilateral external ears normal, oropharynx moist, no oral exudates, nose normal. [] Eyes: PERRLA, EOMI, conjunctiva normal, no discharge. [] Neck: Normal range of motion, no tenderness, supple, no stridor. [] Cardiovascular: Tachycardia, regular rhythm, no murmur [] Lungs & Thorax: Bilateral breath sounds clear to auscultation [] Abdomen: Bowel sounds normal, soft, no tenderness, no masses, no pulsatile masses. [] Skin: Warm, dry, no erythema, no rash. [] Back: No tenderness, no CVA tenderness. [] Extremities: No tenderness, no cyanosis, no clubbing, ROM intact, no edema. [] Neurologic: Alert and oriented X 3, normal motor function, normal sensory function, no focal deficits noted. [] Current Patient Data Vital Signs Vital Signs Date Time Temp Pulse Resp B/P (MAP) Pulse Ox O2 Delivery O2 Flow Rate FiO2 03/25/17 17:05 98.0 107 18 98 Room Air Lab Results Laboratory Tests Test 03/25/17 17:43 White Blood Count 6.1 x10^3/uL (4.0-11.0) Red Blood Count 4.41 x10^6/uL (3.50-5.40) Hemoglobin 13.8 g/dL (12.0-15.5) Hematocrit 40.3 % (36.0-47.0) Mean Corpuscular Volume 91 fL (79-100) Mean Corpuscular Hemoglobin 31 pg (25-35) Mean Corpuscular Hemoglobin Concent 34 g/dL (31-37) Red Cell Distribution Width 14.0 % (11.5-14.5) Platelet Count 263 x10^3/uL (140-400) Neutrophils (%) (Auto) 78 % (31-73) H Lymphocytes (%) (Auto) 13 % (24-48) L Monocytes (%) (Auto) 7 % (0-9) Eosinophils (%) (Auto) 0 % (0-3) Basophils (%) (Auto) 1 % (0-3) Neutrophils # (Auto) 4.8 x10^3uL (1.8-7.7) Lymphocytes # (Auto) 0.8 x10^3/uL (1.0-4.8) L Monocytes # (Auto) 0.5 x10^3/uL (0.0-1.1) Eosinophils # (Auto) 0.0 x10^3/uL (0.0-0.7) Basophils # (Auto) 0.0 x10^3/uL (0.0-0.2) Urine Collection Type Unknown Urine Color Yellow Urine Clarity Cloudy Urine pH 6.5 Urine Specific [place] 1.015 Urine Protein 30 mg/dl (NEG-TRACE) Urine Glucose (UA) Neg mg/dL (NEG) Urine Ketones (Stick) Neg mg/dL (NEG) Urine Blood Small (NEG) Urine Nitrite Neg (NEG) Urine Bilirubin Neg (NEG) Urine Urobilinogen Dipstick 0.2 mg/dL (0.2 mg/dL) Urine Leukocyte Esterase Large (NEG) Urine RBC Occ /HPF (0-2) Urine WBC 11-20 /HPF (0-4) Urine Squamous Epithelial Cells Occ /LPF Urine Bacteria Few /HPF (0-FEW) Urine Mucus Slight /LPF Sodium Level 142 mmol/L (136-145) Potassium Level 3.4 mmol/L (3.5-5.1) L Chloride Level 106 mmol/L (98-107) Carbon Dioxide Level 30 mmol/L (21-32) Anion Gap 6 (6-14) Blood Urea Nitrogen 8 mg/dL (7-20) Creatinine 0.7 mg/dL (0.6-1.0) Estimated GFR (Cockcroft-Gault) 88.2 Glucose Level 98 mg/dL (70-99) Calcium Level 8.9 mg/dL (8.5-10.1) Urine Opiates Screen Neg (NEG) Urine Methadone Screen Neg (NEG) Urine Barbiturates Neg (NEG) Urine Phencyclidine Screen Neg (NEG) Urine Amphetamine/Methamphetamine Pos (NEG) Urine Benzodiazepines Screen Pos (NEG) Urine Cocaine Screen Neg (NEG) Urine Cannabinoids Screen Neg (NEG) Ethyl Alcohol Level < 10 mg/dL (0-10) Urine Ethyl Alcohol Neg (NEG) EKG EKG Rhythm strip interpretation by me: Heart rate 105, sinus tachycardia, no ectopy. [] Radiology/Procedures Radiology/Procedures Not performed[] Course & Med Decision Making Course & Med Decision Making Pertinent Labs and Imaging studies reviewed. (See chart for details) The patient stated that she wanted to be admitted voluntarily for detox from her substance abuse. Patient medically cleared in the emergency department. Patient received psychiatric clearance by Dr. Holloway yesterday while she was admitted. Patient denies suicidal or homicidal ideation at this time. [facility] was contacted and requested information for review. Unfortunately, after receiving all of her information, they called back and declined the patient. The patient initially had paperwork completed in anticipation of acceptance to [facility] detox center. The emergency department nurse told the patient and her that she would not be accepted to [facility] and was offered to have additional centers contacted an attempt to try to establish inpatient detox care this evening. Unfortunately the patient and the patient's declined and stated that they wanted to go home. The patient did not voice suicidal or homicidal ideation. They wanted to leave immediately and I did not have a chance to sit down and speak with them regarding additional options. The patient was accidentally given paperwork that instructed them to go to [facility] upon discharge. Verbally the patient was given instructions to follow up with [facility] tomorrow and advised return to the emergency department for any worsening symptoms. Dragon Disclaimer Dragon Disclaimer This electronic medical record was generated, in whole or in part, using a voice recognition dictation system. Departure Departure: Impression: Primary Impression: Substance abuse Additional Impression: Anxiety disorder Disposition: 65 XFER TO PSYCH HOSP/UNIT Condition: STABLE Referrals: PCP,NO (PCP) Patient Instructions: Substance Abuse-Brief, Urinary Tract Infection Additional Instructions: Follow-up tomorrow at the [facility] for continued outpatient treatment. Return to the emergency department for any worsening symptoms. Scripts Nitrofurantoin Monohyd/M-Cryst (MACROBID 100 MG CAPSULE) 100 Mg Capsule 1 CAP PO BID, #14 CAP Prov: NAS DENTON MD 03/25/17 Problem Qualifiers Additional Impression: Anxiety disorder Anxiety disorder type: generalized anxiety disorder Qualified Codes: F41.1 - Generalized anxiety disorder NAS DENTON MD Mar 25, 2017 18:49
[2017-03-25] MEDS ORDERED: NITR100C62 PO (19:11)
== END 2017-03-25 19:30 | disposition home or self-care (01) ==
LOC: ER 17:00
DX: F41.1 Generalized anxiety disorder (principal); F15.10 Other stimulant abuse, uncomplicated; J44.9 Chronic obstructive pulmonary disease, unspecified
CPT/HCPCS: 36415; 80048; 80307; 81001; 85025; 87086; 99284; G0480; G0479

== ENCOUNTER 2018-01-04 14:51 | Emergency (ER) | payer SELFPAY ==
[~2018-01-04 14:51] MED LIST changes: -CLON1TAB3 PO; +CLON1TAB4 PO; +NITR100C62 PO
[2018-01-04] MEDS ORDERED: MVI, ADULT NO.4 WITH VIT K 10 ML, FOLIC ACID 1 MG, THIAMINE 100 MG in IV NORMAL SALINE ... IV ONE ×4 (15:30)
[2018-01-04 15:35] LABS: BASO % 1 % (0-3); EOS # 0.1 x10^3/uL (0.0-0.7); EOS % 2 % (0-3); HEMATOCRIT 38.5 % (36.0-47.0); HEMOGLOBIN 13.3 g/dL (12.0-15.5); LYMPH # 2.2 x10^3/uL (1.0-4.8); LYMPH % 38 % (24-48); MEAN CORPUSCULAR HEMOGLOBIN 33 pg (25-35); MEAN CORPUSCULAR HGB CONC 35 g/dL (31-37); MEAN CORPUSCULAR VOLUME 95 fL (79-100); MONO # 0.5 x10^3/uL (0.0-1.1); MONO % 8 % (0-9); NEUT % 52 % (31-73); PLATELET COUNT 260 x10^3/uL (140-400); RED BLOOD COUNT 4.07 x10^6/uL (3.50-5.40); WHITE BLOOD COUNT 5.8 x10^3/uL (4.0-11.0)
--- NOTE | 2018-01-04 15:43 | PHYS DOC ---
Past History Past Medical History: Cancer, COPD, Other Past Surgical History: Cancer Surgery, Tubal ligation, Other Alcohol Use: Occasionally Additional Alcohol Information: States been drinking daily approx 1 pint Vodka added beer daily and states added xanax today Drug Use: Methamphetamine, Other Adult General Chief Complaint Chief Complaint: ALTERED MENTAL STATUS HPI HPI 52-year-old female presents via EMS unresponsiveness and abdominal status. Patient was reported to be found on the sidewalk with decreased, agonal breathing and was unresponsive. She was given 1 mg of Narcan which made the patient unresponsive and belligerent. She ripped out her IV in the ambulance. On arrival the patient is calm and able to answer all questions. She does not seem to be happy to be here. She states that she is fine. When I ask her what she remembers she states that she does not a anything until waking up in the ambulance. She denies drug use. She admits to drinking 1 L of vodka or more per day for several days. She denies abdominal pain, nausea, vomiting, shortness breath, chest pain, dysuria, urinary frequency, fever, or chills. Review of Systems Review of Systems Constitutional: Altered mental status[] Eyes: Denies change in visual acuity, redness, or eye pain [] HENT: Denies nasal congestion or sore throat [] Respiratory: Denies cough or shortness of breath [] Cardiovascular: No additional information not addressed in HPI [] GI: Denies abdominal pain, nausea, vomiting, bloody stools or diarrhea [] : Denies dysuria or hematuria [] Musculoskeletal: Denies back pain or joint pain [] Integument: Denies rash or skin lesions [] Neurologic: Denies headache, focal weakness or sensory changes [] Endocrine: Denies polyuria or polydipsia [] All other systems were reviewed and found to be within normal limits, except as documented in this note. Current Medications Current Medications Current Medications Medications (Trade) Dose Ordered Sig/[place] Start Time Stop Time Status Last Admin Dose Admin Multivitamins/ Minerals 10 ml/ Folic Acid 1 mg/ Thiamine HCl 100 mg/Sodium Chloride 1,011.2 ml @ 0 mls/hr 1X ONCE 01/04/18 15:30 01/04/18 15:31 DC Allergies Allergies Allergies Coded Allergies Type Severity Reaction Last Updated Verified No Known Drug Allergies 08/14/15 No Physical Exam Physical Exam Constitutional: Well developed, well nourished, no acute distress, non-toxic appearance. [] HENT: Normocephalic, atraumatic, bilateral external ears normal, oropharynx moist, no oral exudates, nose normal. [] Eyes: PERRLA, EOMI, conjunctiva normal, no discharge. [] Neck: Normal range of motion, no tenderness, supple, no stridor. [] Cardiovascular:Heart rate regular rhythm, no murmur [] Lungs & Thorax: Bilateral breath sounds clear to auscultation [] Abdomen: Bowel sounds normal, soft, no tenderness, no masses, no pulsatile masses. [] Skin: Warm, dry, no erythema, no rash. [] Back: No tenderness, no CVA tenderness. [] Extremities: No tenderness, no cyanosis, no clubbing, ROM intact, no edema. [] Neurologic: Alert and oriented X 3, normal motor function, normal sensory function, no focal deficits noted. [] Psychologic: Affect mildly confrontational. Patient is denying the need for medical workup.[] Current Patient Data Vital Signs Vital Signs Date Time Temp Pulse Resp B/P (MAP) Pulse Ox O2 Delivery O2 Flow Rate FiO2 01/04/18 15:35 96 14 111/64 (80) 91 Room Air 01/04/18 14:51 98.7 Lab Results Laboratory Tests Test 01/04/18 14:55 White Blood Count 5.8 x10^3/uL (4.0-11.0) Red Blood Count 4.07 x10^6/uL (3.50-5.40) Hemoglobin 13.3 g/dL (12.0-15.5) Hematocrit 38.5 % (36.0-47.0) Mean Corpuscular Volume 95 fL (79-100) Mean Corpuscular Hemoglobin 33 pg (25-35) Mean Corpuscular Hemoglobin Concent 35 g/dL (31-37) Red Cell Distribution Width 14.0 % (11.5-14.5) Platelet Count 260 x10^3/uL (140-400) Neutrophils (%) (Auto) 52 % (31-73) Lymphocytes (%) (Auto) 38 % (24-48) Monocytes (%) (Auto) 8 % (0-9) Eosinophils (%) (Auto) 2 % (0-3) Basophils (%) (Auto) 1 % (0-3) Neutrophils # (Auto) 3.0 x10^3uL (1.8-7.7) Lymphocytes # (Auto) 2.2 x10^3/uL (1.0-4.8) Monocytes # (Auto) 0.5 x10^3/uL (0.0-1.1) Eosinophils # (Auto) 0.1 x10^3/uL (0.0-0.7) Basophils # (Auto) 0.0 x10^3/uL (0.0-0.2) EKG EKG [] Radiology/Procedures Radiology/Procedures [] Impressions: EXAM: Head CT without contrast. HISTORY: Unresponsive. TECHNIQUE: Computed tomographic images of the head were obtained without contrast. *One or more of the following individualized dose reduction techniques were utilized for this examination: 1. Automated exposure control. 2. Adjustment of the mA and/or kV according to patient size. 3. Use of iterative reconstruction technique. COMPARISON: None. FINDINGS: There is no acute or subacute extra-axial or intraparenchymal hemorrhage. There is no mass effect or midline shift. There is no hydrocephalus. The thomas-white matter differentiation pattern is intact. The visualized portions of the orbits, paranasal sinuses and mastoid air cells are unremarkable. No suspicious calvarial lesion is seen. IMPRESSION: No acute intracranial findings. Electronically signed by: Suha Martínez MD (01/04/2018 4:00 PM) [facility] [place] EXAM: Chest, single view. HISTORY: Unresponsive. COMPARISON: None. FINDINGS: A frontal view of the chest is obtained. There are mastectomy changes. There is increased opacity overlying the left thorax due to a tissue marbleizer. There are clips overlying the right axilla and upper mid thorax. There is no infiltrate, pleural effusion or pneumothorax. The heart is normal in size. There is articulation between the anterior right first and second ribs, a normal variant. IMPRESSION: No acute pulmonary finding. Electronically signed by: Suha Martínez MD (01/04/2018 4:01 PM) [facility] [place] DICTATED AND SIGNED BY: SUHA MARTÍNEZ MD DATE: 01/04/18 1600 CC: CLAUDE FINNEGAN DO; PCP,NO ~ DICTATED AND SIGNED BY: SUHA MARTÍNEZ MD DATE: 01/04/18 [id number] CC: CLAUDE FINNEGAN DO; PCP,SONIA ~ Course & Med Decision Making Course & Med Decision Making Pertinent Labs and Imaging studies reviewed. (See chart for details) The patient initially refused CT scan stating she doesn't have money for it. She later agreed to the head CT which is unremarkable. After her family arrived, they provided some additional details. Family states that the patient lost consciousness in the back of their car. The son-in-law states that he started chest compressions and rescue breathing for the patient. Further information from EMS confirms that when they arrived there was someone performing compressions on the patient. The patient's labs are unremarkable. Her urine drug screen reveals benzodiazepines, opiates, and alcohol. Her alcohol level was 94. I believe the benzodiazepines and with the opiates is likely the cause of her unresponsive condition. Her EKG is unremarkable. Her troponin is negative. The patient has been coherent and lucid since coming to the ED. She would like to be discharged. The patient has had a lot of emotional stress lately. She has gone to the [facility]. Medically I believe the patient is stable and could go home. She is refusing observation admission. I will discharge her as requested. [] Dragon Disclaimer Dragon Disclaimer This electronic medical record was generated, in whole or in part, using a voice recognition dictation system. Departure Departure: Referrals: SONIA HERRERA (PCP) CLAUDE FINNEGAN DO Jan 04, 2018 15:43
[2018-01-04 15:50] LABS: ALBUMIN 3.8 g/dL (3.4-5.0); ALBUMIN/GLOBULIN RATIO 1.2 (1.0-1.7); CALCIUM 8.8 mg/dL (8.5-10.1); GFR 58.2; POTASSIUM 3.4 mmol/L (3.5-5.1); TOTAL BILIRUBIN 0.4 mg/dL (0.2-1.0)
--- NOTE | 2018-01-04 16:03 | RAD ---
EXAM: Head CT without contrast. HISTORY: Unresponsive. TECHNIQUE: Computed tomographic images of the head were obtained without contrast. *One or more of the following individualized dose reduction techniques were utilized for this examination: 1. Automated exposure control. 2. Adjustment of the mA and/or kV according to patient size. 3. Use of iterative reconstruction technique. COMPARISON: None. FINDINGS: There is no acute or subacute extra-axial or intraparenchymal hemorrhage. There is no mass effect or midline shift. There is no hydrocephalus. The thomas-white matter differentiation pattern is intact. The visualized portions of the orbits, paranasal sinuses and mastoid air cells are unremarkable. No suspicious calvarial lesion is seen. IMPRESSION: No acute intracranial findings. Electronically signed by: Suha Becker MD (01/04/2018 4:00 PM) [facility] [place]
--- NOTE | 2018-01-04 16:03 | RAD ---
EXAM: Chest, single view. HISTORY: Unresponsive. COMPARISON: None. FINDINGS: A frontal view of the chest is obtained. There are mastectomy changes. There is increased opacity overlying the left thorax due to a tissue hand former. There are clips overlying the right axilla and upper mid thorax. There is no infiltrate, pleural effusion or pneumothorax. The heart is normal in size. There is articulation between the anterior right first and second ribs, a normal variant. IMPRESSION: No acute pulmonary finding. Electronically signed by: Suha Becker MD (01/04/2018 4:01 PM) [facility] [place]
--- NOTE | 2018-01-04 16:30 | EKG ---
[address] [address] Test Date: 2018-01-04 Test Time: 16:28:11 Pat Name: EBONY KING Department: Room: Gender: F Fish Smoker: : 1965 Requested By: CLAUDE FINNEGAN Order Number: [id number] Reading MD: Naman Lewis MD Measurements Intervals [place] Rate: 78 P: 74 NE: 138 QRS: 54 QRSD: 82 T: 61 QT: 380 QTc: 437 Interpretive Statements SINUS RHYTHM Electronically Signed On 01-08-2018 9:02:49 CDT by Naman Lewis MD
[2018-01-04 16:52] LABS: BARBITURATES NEG (NEG); BENZODIAZEPINES POS (NEG); CANNABINOIDS NEG (NEG); COCAINE NEG (NEG); METHADONE NEG (NEG); OPIATES POS (NEG); PHENCYCLIDINE NEG (NEG)
[2018-01-04 16:53] LABS: AMPHETAMINE/METHAMPHETAMINE NEG (NEG)
[2018-01-04 16:59] LABS: BACTERIA,URINE 0 /HPF (0-FEW); BILIRUBIN,URINE NEG (NEG); CLARITY,URINE CLEAR; COLOR,URINE YELLOW; GLUCOSE,URINE NEG (NEG); NITRITE,URINE NEG (NEG); RBC,URINE OCC /HPF (0-2); SQUAMOUS EPITHELIAL CELL,UR OCC /LPF; UROBILINOGEN,URINE 0.2 mg/dL (0.2 mg/dL); WBC,URINE RARE /HPF (0-4)
[2018-01-04 18:00] VITALS: BP 106/66
== END 2018-01-04 18:00 | disposition home or self-care (01) ==
LOC: ER 14:51
DX: R41.82 Altered mental status, unspecified (principal); F10.129 Alcohol abuse with intoxication, unspecified; F19.10 Other psychoactive substance abuse, uncomplicated; F11.10 Opioid abuse, uncomplicated; J44.9 Chronic obstructive pulmonary disease, unspecified; Y90.4 Blood alcohol level of 80-99 mg/100 ml
CPT/HCPCS: 36415; 70450; 71045; 80053; 80307; 81001; 84484; 85025; 93005; 96365; 96366; 99285; G0480; G0479; J7030

== ENCOUNTER 2018-12-29 19:23 | Emergency (ER) | payer SELFPAY ==
[~2018-12-29] VITALS: Ht 152.4 cm; Wt 41.3 kg
[2018-12-29 19:23] VITALS: BP 120/88
[~2018-12-29 19:23] MED LIST changes: +ALBU2.5V8 INH; -ALBU8.5H8 INH; +CLON1TAB11 PO; -CLON1TAB4 PO; +HYDR-2155 PO; -HYDR-2758 PO
--- NOTE | 2018-12-29 19:43 | ED.ADGEN ---
Past History Past Medical History: Alcoholism, Cancer Past Surgical History: Other Alcohol Use: Heavy Drug Use: None Adult General Chief Complaint Chief Complaint ".. I ve been drinking and I started thinking I need to quit... but now I don't want to get evaluated..".." I been drinking a long time and I just thought it might be a good time to quit"... But after I got back care and decided I don't want to be evaluated>>>..... HPI HPI Patient is a 53 year old female who presents with above hx and complaints of call abuse. Patient states he has been drinking daily for months and months. Patient has no complaints. States she has had counseling before for alcohol withdrawal. Patient denies history of alcohol withdrawal seizures. Patient denies other drug use. Patient states she does not want to be evaluated for an in-hospital at all withdrawal program. Patient demanding discharge. Was given references for alcohol withdrawal program and encouraged follow-up with counseling center. Patient states she will take a cab home. Review of Systems Review of Systems Constitutional: Denies fever or chills [] Eyes: Denies change in visual acuity, redness, or eye pain [] HENT: Denies nasal congestion or sore throat [] Respiratory: Denies cough or shortness of breath [] Cardiovascular: No additional information not addressed in HPI [] GI: Denies abdominal pain, nausea, vomiting, bloody stools or diarrhea [] : Denies dysuria or hematuria [] Musculoskeletal: Denies back pain or joint pain [] Integument: Denies rash or skin lesions [] Neurologic: Denies headache, focal weakness or sensory changes [] Endocrine: Denies polyuria or polydipsia [] All other systems were reviewed and found to be within normal limits, except as documented in this note. Family History Family History Noncontributory Current Medications Current Medications Current Medications Medications (Trade) Dose Ordered Sig/Lasha[place] Start Time Stop Time Status Last Admin Dose Admin Multivitamins/ Minerals 10 ml/ Folic Acid 1 mg/ Thiamine HCl 100 mg/Lactated Ringer's 1,011.2 ml @ 1,011.2 mls/hr 1X ONCE 12/29/18 19:45 12/29/18 20:44 DC Allergies Allergies Allergies Coded Allergies Type Severity Reaction Last Updated Verified No Known Drug Allergies 08/14/15 No Physical Exam Physical Exam Constitutional: no acute distress, and intoxicated appearance. [] HENT: Normocephalic, atraumatic, bilateral external ears normal, oropharynx moist, no oral exudates, nose normal. [] Eyes: PERRLA, EOMI, conjunctiva mild injection, no discharge. [] Neck: Normal range of motion, no tenderness, supple, no stridor. [] Cardiovascular: Tachycardia Heart rate regular rhythm, no murmur [] Lungs & Thorax: Bilateral breath sounds equal at apexes auscultation [] Abdomen: Bowel sounds normal, soft, no tenderness, no masses, no pulsatile masses. [] Scar. Skin: Warm, dry, no erythema, no rash. [] Back: No tenderness, no CVA tenderness. [] Extremities: No tenderness, no cyanosis, no clubbing, ROM intact, no edema. [] Neurologic: Alert and oriented X 3, normal motor function, normal sensory function, no focal deficits noted. DTRs +2 patella and brachial. Is ambulatory without problems. Very mild dis coordination Psychologic: Affect normal, judgement mild impairment, mood normal. [] Current Patient Data Vital Signs Vital Signs Date Time Temp Pulse Resp B/P (MAP) Pulse Ox O2 Delivery O2 Flow Rate FiO2 12/29/18 19:23 99.0 92 18 98 Room Air Lab Results Laboratory Tests Test 12/29/18 19:45 12/29/18 20:00 Urine Collection Type Unknown Urine Color Yellow Urine Clarity Clear Urine pH 6.0 Urine Specific [place] 1.020 Urine Protein Trace (NEG-TRACE) Urine Glucose (UA) Neg mg/dL (NEG) Urine Ketones (Stick) Neg mg/dL (NEG) Urine Blood Trace (NEG) Urine Nitrite Neg (NEG) Urine Bilirubin Neg (NEG) Urine Urobilinogen Dipstick 0.2 mg/dL (0.2 mg/dL) Urine Leukocyte Esterase Neg (NEG) Urine RBC Occ /HPF (0-2) Urine WBC Occ /HPF (0-4) Urine Squamous Epithelial Cells Occ /LPF Urine Bacteria 0 /HPF (0-FEW) Urine Opiates Screen Neg (NEG) Urine Methadone Screen Neg (NEG) Urine Barbiturates Neg (NEG) Urine Phencyclidine Screen Neg (NEG) Urine Amphetamine/Methamphetamine Neg (NEG) Urine Benzodiazepines Screen Neg (NEG) Urine Cocaine Screen Neg (NEG) Urine Cannabinoids Screen Neg (NEG) Urine Ethyl Alcohol Pos (NEG) White Blood Count 5.8 x10^3/uL (4.0-11.0) Red Blood Count 4.07 x10^6/uL (3.50-5.40) Hemoglobin 14.5 g/dL (12.0-15.5) Hematocrit 42.5 % (36.0-47.0) Mean Corpuscular Volume 105 fL (79-100) H Mean Corpuscular Hemoglobin 36 pg (25-35) H Mean Corpuscular Hemoglobin Concent 34 g/dL (31-37) Red Cell Distribution Width 14.2 % (11.5-14.5) Platelet Count 286 x10^3/uL (140-400) Neutrophils (%) (Auto) 50 % (31-73) Lymphocytes (%) (Auto) 40 % (24-48) Monocytes (%) (Auto) 9 % (0-9) Eosinophils (%) (Auto) 0 % (0-3) Basophils (%) (Auto) 1 % (0-3) Neutrophils # (Auto) 2.9 x10^3uL (1.8-7.7) Lymphocytes # (Auto) 2.3 x10^3/uL (1.0-4.8) Monocytes # (Auto) 0.5 x10^3/uL (0.0-1.1) Eosinophils # (Auto) 0.0 x10^3/uL (0.0-0.7) Basophils # (Auto) 0.1 x10^3/uL (0.0-0.2) Prothrombin Time < 9.3 SEC (9.4-11.4) L Prothrombin Time INR 0.9 (0.9-1.1) Activated Partial Thromboplast Time 24 SEC (23-33) Sodium Level 144 mmol/L (136-145) Potassium Level 4.2 mmol/L (3.5-5.1) Chloride Level 107 mmol/L (98-107) Carbon Dioxide Level 23 mmol/L (21-32) Anion Gap 14 (6-14) Blood Urea Nitrogen 17 mg/dL (7-20) Creatinine 0.8 mg/dL (0.6-1.0) Estimated GFR (Cockcroft-Gault) 75.0 Glucose Level 101 mg/dL (70-99) H Calcium Level 9.0 mg/dL (8.5-10.1) Magnesium Level 2.1 mg/dL (1.8-2.4) Total Bilirubin 0.2 mg/dL (0.2-1.0) Direct Bilirubin 0.1 mg/dL (0.0-0.2) Aspartate Amino Transferase (AST) 49 U/L (15-37) H Alanine Aminotransferase (ALT) 38 U/L (14-59) Alkaline Phosphatase 72 U/L (46-116) Troponin I Quantitative < 0.017 ng/mL (0-0.055) BG-Dnq-N-Type Natriuretic Peptide 77 pg/mL (0-124) Total Protein 7.1 g/dL (6.4-8.2) Albumin 3.9 g/dL (3.4-5.0) Ethyl Alcohol Level 379 mg/dL (0-10) H EKG EKG EKG shows a sinus rhythm at 95 bpm with no acute pathology[] Radiology/Procedures Radiology/Procedures [] Course & Med Decision Making Course & Med Decision Making Pertinent Labs and Imaging studies reviewed. (See chart for details) Begged patient to stay to at least receive some IV fluids and get labs back. Patient refused. Given referral information for alcohol withdrawal. Patient encouraged to return anytime if she wished to complete her evaluation. [] Final Impression Final Impression 1. Alcohol intoxication-379 2. Mild elevation in AST 49[] Dragon Disclaimer Dragon Disclaimer This electronic medical record was generated, in whole or in part, using a voice recognition dictation system. Dragon Disclaimer This chart was dictated in whole or in part using Voice Recognition software in a busy, high-work load, and often noisy Emergency Department environment. It may contain unintended and wholly unrecognized errors or omissions. CURLY SIERRA MD Dec 29, 2018 19:43
[2018-12-29] MEDS ORDERED: MVI, ADULT NO.4 WITH VIT K 10 ML, FOLIC ACID SYRINGE for ER 1 MG, THIAMINE INJ 100 MG i... IV ONE ×4 (19:45)
[2018-12-29 20:13] LABS: BASO # 0.1 x10^3/uL (0.0-0.2); BASO % 1 % (0-3); EOS % 0 % (0-3); HEMATOCRIT 42.5 % (36.0-47.0); HEMOGLOBIN 14.5 g/dL (12.0-15.5); LYMPH # 2.3 x10^3/uL (1.0-4.8); LYMPH % 40 % (24-48); MEAN CORPUSCULAR HEMOGLOBIN 36 pg (25-35); MEAN CORPUSCULAR HGB CONC 34 g/dL (31-37); MEAN CORPUSCULAR VOLUME 105 fL (79-100); MONO # 0.5 x10^3/uL (0.0-1.1); MONO % 9 % (0-9); NEUT # 2.9 x10^3uL (1.8-7.7); NEUT % 50 % (31-73); PLATELET COUNT 286 x10^3/uL (140-400); RED BLOOD COUNT 4.07 x10^6/uL (3.50-5.40); RED CELL DISTRIBUTION WIDTH 14.2 % (11.5-14.5); WHITE BLOOD COUNT 5.8 x10^3/uL (4.0-11.0)
[2018-12-29 20:29] LABS: AMPHETAMINE/METHAMPHETAMINE NEG (NEG); BARBITURATES NEG (NEG); BENZODIAZEPINES NEG (NEG); CANNABINOIDS NEG (NEG); COCAINE NEG (NEG); METHADONE NEG (NEG); OPIATES NEG (NEG); PHENCYCLIDINE NEG (NEG)
[2018-12-29 20:38] LABS: COLOR,URINE YELLOW
[2018-12-29 20:39] LABS: BACTERIA,URINE 0 /HPF (0-FEW); BILIRUBIN,URINE NEG (NEG); CLARITY,URINE CLEAR; GLUCOSE,URINE NEG (NEG); NITRITE,URINE NEG (NEG); RBC,URINE OCC /HPF (0-2); SQUAMOUS EPITHELIAL CELL,UR OCC /LPF; UROBILINOGEN,URINE 0.2 mg/dL (0.2 mg/dL); WBC,URINE OCC /HPF (0-4)
[2018-12-29 20:46] LABS: ALBUMIN 3.9 g/dL (3.4-5.0); CREATININE 0.8 mg/dL (0.6-1.0); DIRECT BILIRUBIN 0.1 mg/dL (0.0-0.2); MAGNESIUM 2.1 mg/dL (1.8-2.4); POTASSIUM 4.2 mmol/L (3.5-5.1); TOTAL BILIRUBIN 0.2 mg/dL (0.2-1.0); TOTAL PROTEIN 7.1 g/dL (6.4-8.2)
--- NOTE | 2018-12-29 22:29 | EKG ---
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
== END 2018-12-29 20:15 | disposition home or self-care (01) ==
LOC: ER 19:23
DX: F10.229 Alcohol dependence with intoxication, unspecified (principal); R79.89 Other specified abnormal findings of blood chemistry; Y90.8 Blood alcohol level of 240 mg/100 ml or more
CPT/HCPCS: 36415; 80048; 80076; 80307; 81001; 83735; 83880; 84443; 84484; 85025; 85610; 85730; 93005; 99285; G0480